=== PATIENT | female | born 2005 | race Caucasian/White ===

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

== ENCOUNTER 2023-01-30 21:52 | Emergency (ER) | payer OTHER ==
[~2023-01-30] VITALS: Ht 160 cm; Wt 47.9 kg
[~2023-01-30 21:52] MED LIST changes: +BACTRIM DS TAB1 EACH PO; +PERCOCET 5-3251 EACH PO
[2023-01-31] MEDS ORDERED: CEPHALEXIN500 M1 PO (00:27)
== END 2023-01-31 00:51 | disposition home or self-care (01) ==
LOC: ED 21:52
DX: L03.213 Periorbital cellulitis (principal)
CPT/HCPCS: 99283; A9270